=== PATIENT | female | born 1990 | race Caucasian/White ===

== ENCOUNTER 2016-07-27 09:49 | Emergency (ER) | payer OTHER ==
[~2016-07-27] VITALS: Ht 160 cm; Wt 54.4 kg
[~2016-07-27 09:49] MED LIST: ALBUTEROL INHAL17 GM IH; ALBUTEROL2.5 MG/31; AUGMENTIN 500-1 EACH PO; AZITHROMYCIN 2250 MG PO; BACTRIM DS TAB1 EACH PO; DARVOCET-N 1001 EACH PO; DIFLUCAN150 MG PO; IBUPROFEN; IBUPROFEN 600600 M1 PO; KEFLEX500 MG PO; MOBIC15 MG PO; NORCO 5-325 TA1 EACH PO; TESSALON200 MG PO; VICODIN 5-3001 EACH; XANAX 0.5 MG0.5 MG PO; ZOFRAN ODT4 MG PO; ZPAK PO; antibiotic
[2016-07-27 09:51] VITALS: BP 105/63
[2016-07-27] MEDS ORDERED: AMOXICILLIN 50500 MG PO (09:54)
[2016-07-27] MEDS ORDERED: ACYCLOVIR 400400 MG PO (10:04)
[2016-07-27] MEDS ORDERED: HYDROXYZINE HCL25 M1 PO (10:04)
[2016-07-27] MEDS ORDERED: MEDROL DOSPAK21 TAB PO (10:04)
[2016-07-28] MEDS ORDERED: PRILOSEC OTC20 MG PO (15:00)
== END 2016-07-27 10:20 | disposition home or self-care (01) ==
LOC: ER 09:49
DX: T78.49XA Other allergy, initial encounter (principal); B00.89 Other herpesviral infection; X58.XXXA Exposure to other specified factors, initial encounter; Z87.442 Personal history of urinary calculi; F17.210 Nicotine dependence, cigarettes, uncomplicated

== ENCOUNTER 2016-12-21 23:29 | Emergency (ER) | payer OTHER ==
[~2016-12-21] VITALS: Ht 157.5 cm; Wt 52.6 kg
[~2016-12-21 23:29] MED LIST changes: +ACYCLOVIR 400400 MG PO; +AMOXICILLIN 50500 MG PO; +HYDROXYZINE HCL25 M1 PO; +MEDROL DOSPAK21 TAB PO; +PRILOSEC OTC20 MG PO
[2016-12-22 00:48] VITALS: BP 100/54
== END 2016-12-22 00:50 | disposition home or self-care (01) ==
LOC: ER 23:29
DX: B08.5 Enteroviral vesicular pharyngitis (principal); J02.9 Acute pharyngitis, unspecified; F17.210 Nicotine dependence, cigarettes, uncomplicated; Z87.442 Personal history of urinary calculi; Z90.89 Acquired absence of other organs

== ENCOUNTER 2016-12-30 01:50 | Emergency (ER) | payer OTHER ==
[~2016-12-30] VITALS: Ht 157.5 cm; Wt 52.6 kg
[2016-12-30 02:36] VITALS: BP 114/69
== END 2016-12-30 02:38 | disposition home or self-care (01) ==
LOC: ER 01:50
DX: J04.0 Acute laryngitis (principal); F17.210 Nicotine dependence, cigarettes, uncomplicated; Z98.890 Other specified postprocedural states

== ENCOUNTER 2017-05-23 08:05 | Emergency (ER) | payer OTHER ==
[~2017-05-23] VITALS: Ht 157.5 cm; Wt 53.1 kg
[~2017-05-23 08:05] MED LIST changes: +IBUPROFEN 400400 M2 PO; +MOBIC7.5 MG PO; +ONDANSETRON HCL4 M2 PO; +PREDNISONE 20 M20 MG PO
[2017-05-23 09:18] LABS: URINE BILIRUBIN NEGATIVE (Negative); URINE BLOOD 3+ (Negative); URINE CLARITY CLEAR; URINE COLOR YELLOW; URINE GLUCOSE-RANDOM* NEGATIVE (Negative); URINE KETONES NEGATIVE (Negative); URINE LEUKOCYTES-REFLEX NEGATIVE (Negative); URINE NITRITE-REFLEX NEGATIVE (Negative); URINE PROTEIN (DIPSTICK) NEGATIVE (Negative); URINE UROBILINOGEN 0.2 E.U./dl (0.2-1.0)
[2017-05-23] MEDS ORDERED: NAPROSYN500 MG PO (09:27)
[2017-05-23] MEDS ORDERED: TRAMADOL 50 MG50 MG PO (09:27)
[2017-05-23] MEDS ORDERED: ZPAK PO (09:31)
[2017-05-23 09:56] LABS: BACTERIA-REFLEX 1-9 Few /HPF (None Seen); CASTS None Seen /LPF (None Seen); CRYSTALS None Seen /LPF (None Seen); SQUAMOUS 4-10 Moderate /LPF (0-3); URINE WBC-REFLEX 0-5 Rare /HPF (0-5)
== END 2017-05-23 09:44 | disposition home or self-care (01) ==
LOC: ER 08:05
PROVIDERS: Emergency Medicine
DX: N94.6 Dysmenorrhea, unspecified (principal); R10.2 Pelvic and perineal pain; F17.210 Nicotine dependence, cigarettes, uncomplicated

== ENCOUNTER 2017-11-19 00:04 | Emergency (ER) | payer OTHER ==
[~2017-11-19] VITALS: Ht 160 cm; Wt 49.9 kg
[~2017-11-19 00:04] MED LIST changes: +NAPROSYN500 MG PO; +TRAMADOL 50 MG50 MG PO
[2017-11-19 00:45] VITALS: BP 101/41
== END 2017-11-19 08:21 | disposition home or self-care (01) ==
LOC: ER 00:04
DX: Z53.21 Procedure and treatment not carried out due to patient leaving prior to being seen by health care provider (principal)

== ENCOUNTER 2018-01-30 14:16 | Emergency (ER) | payer OTHER ==
[~2018-01-30] VITALS: Ht 157.5 cm; Wt 48.1 kg
[2018-01-30] MEDS ORDERED: NORFLEX100 MG PO (15:03)
[2018-01-30] MEDS ORDERED: MOBIC7.5 MG PO (15:03)
[2018-01-30 16:05] VITALS: BP 118/38
== END 2018-01-30 16:05 | disposition home or self-care (01) ==
LOC: ER 14:16
DX: S29.012A Strain of muscle and tendon of back wall of thorax, initial encounter (principal); X58.XXXA Exposure to other specified factors, initial encounter; Y93.89 Activity, other specified; Y92.89 Other specified places as the place of occurrence of the external cause; Y99.8 Other external cause status

== ENCOUNTER 2018-02-09 11:06 | Emergency (ER) | payer OTHER ==
[~2018-02-09] VITALS: Ht 157.5 cm; Wt 49.9 kg
[~2018-02-09 11:06] MED LIST changes: +NORFLEX100 MG PO
== END 2018-02-09 12:13 | disposition home or self-care (01) ==
LOC: ER 11:06
DX: S23.3XXA Sprain of ligaments of thoracic spine, initial encounter (principal); F17.210 Nicotine dependence, cigarettes, uncomplicated; Z87.442 Personal history of urinary calculi; Z90.89 Acquired absence of other organs; X50.0XXA Overexertion from strenuous movement or load, initial encounter; Y92.89 Other specified places as the place of occurrence of the external cause; Y99.0 Civilian activity done for income or pay; Y99.8 Other external cause status

== ENCOUNTER 2018-05-24 22:38 | Emergency (ER) | payer OTHER ==
[~2018-05-24] VITALS: Ht 157.5 cm; Wt 50.8 kg
[2018-05-24 23:10] LABS: URINE BILIRUBIN NEGATIVE (Negative); URINE BLOOD TRACE (Negative); URINE CLARITY CLEAR; URINE COLOR YELLOW; URINE GLUCOSE-RANDOM* NEGATIVE (Negative); URINE KETONES NEGATIVE (Negative); URINE LEUKOCYTES-REFLEX NEGATIVE (Negative); URINE NITRITE-REFLEX NEGATIVE (Negative); URINE PROTEIN (DIPSTICK) NEGATIVE (Negative); URINE SPECIFIC GRAVITY >= 1.030 (1.005-1.035); URINE UROBILINOGEN 0.2 E.U./dl (0.2-1.0)
[2018-05-24 23:18] LABS: ABSOLUTE NEUTROPHILS 8.4 thou/uL (1.4-8.2); BASOPHILS 0.6 % (0.0-2.0); EOSINOPHILS 2.5 % (0.0-3.0); HEMATOCRIT 41.5 % (37.0-47.0); HEMOGLOBIN 14.2 gm/dL (12.0-15.0); LYMPHOCYTES 28.5 % (24.0-44.0); MCH 32.2 pg (26.0-34.0); MCHC 34.1 g/dL (28.0-37.0); MCV 94.4 fL (80.0-100.0); MONOCYTES 4.9 % (1.0-8.0); PLATELET COUNT 209 thou/uL (150-400); POLYS 63.5 % (36.0-66.0); RBC 4.39 mil/uL (4.20-5.00); RDW 12.8 % (10.5-14.5); WBC 13.2 thou/uL (4.0-11.0)
[2018-05-24 23:26] LABS: CALCIUM 9.5 mg/dL (8.5-10.1); CREATININE 0.7 mg/dL (0.6-1.0); POTASSIUM 4.2 mmol/L (3.5-5.1)
[2018-05-24 23:32] LABS: ALBUMIN 3.8 g/dL (3.4-5.0); TOTAL BILIRUBIN 0.4 mg/dL (<0.1-1.0); TOTAL PROTEIN 8.1 g/dL (6.4-8.2)
[2018-05-24] MEDS ORDERED: PENICILLIN VK500 M1 PO (23:43)
[2018-05-24] MEDS ORDERED: TRAMADOL 50 MG50 MG PO (23:43)
[2018-05-24] MEDS ORDERED: ZOFRAN ODT4 MG DISSOLVE (23:43)
[2018-05-25 00:40] VITALS: BP 102/60
== END 2018-05-25 00:40 | disposition home or self-care (01) ==
LOC: ER 22:38
PROVIDERS: Emergency Medicine
DX: R11.2 Nausea with vomiting, unspecified (principal); R19.7 Diarrhea, unspecified; R51 Headache; K04.7 Periapical abscess without sinus; F17.210 Nicotine dependence, cigarettes, uncomplicated

== ENCOUNTER 2018-09-03 23:20 | Emergency (ER) | payer OTHER ==
[~2018-09-03] VITALS: Ht 157.5 cm; Wt 51.3 kg
[~2018-09-03 23:20] MED LIST changes: +PENICILLIN VK500 M1 PO; +ZOFRAN ODT4 MG DISSOLVE
[2018-09-04] MEDS ORDERED: NAPROSYN500 MG PO (00:38)
[2018-09-04 00:57] VITALS: BP 113/71
== END 2018-09-04 00:58 | disposition home or self-care (01) ==
LOC: ER 23:20
DX: S93.691A Other sprain of right foot, initial encounter (principal); F17.210 Nicotine dependence, cigarettes, uncomplicated; Z87.442 Personal history of urinary calculi; Z90.89 Acquired absence of other organs; Y04.2XXA Assault by strike against or bumped into by another person, initial encounter; Y92.007 Garden or yard of unspecified non-institutional (private) residence as the place of occurrence of the external cause; Y93.89 Activity, other specified; Y99.8 Other external cause status

== ENCOUNTER 2018-12-01 00:35 | Emergency (ER) | payer OTHER ==
[~2018-12-01] VITALS: Ht 160 cm; Wt 52.2 kg
[2018-12-01 01:46] LABS: URINE BILIRUBIN NEGATIVE (Negative); URINE BLOOD 3+ (Negative); URINE CLARITY CLEAR; URINE COLOR YELLOW; URINE GLUCOSE-RANDOM* NEGATIVE (Negative); URINE KETONES 1+ (Negative); URINE LEUKOCYTES-REFLEX NEGATIVE (Negative); URINE NITRITE-REFLEX NEGATIVE (Negative); URINE PROTEIN (DIPSTICK) NEGATIVE (Negative); URINE SPECIFIC GRAVITY 1.025 (1.005-1.035); URINE UROBILINOGEN 0.2 E.U./dl (0.2-1.0)
[2018-12-01] MEDS ORDERED: ZOFRAN ODT4 MG DISSOLVE (02:00)
[2018-12-01] MEDS ORDERED: NAPROSYN500 MG PO (02:00)
[2018-12-01] MEDS ORDERED: ACETAMINOPHEN-1 EAC1 PO (02:06)
[2018-12-01 02:08] LABS: HYALINE CASTS 0-3 Few /LPF (None Seen); MUCUS 0-3 Light strn/LPF (None Seen); SQUAMOUS 0-3 Few /LPF (0-3); TRANSITIONAL EPITHEL CELL 0-3 Few /LPF (None Seen)
[2018-12-01 02:09] LABS: BACTERIA-REFLEX 1-9 Few /HPF (None Seen); CRYSTALS None Seen /LPF (None Seen); URINE RBC 0-2 Rare /HPF (0-2); URINE WBC-REFLEX 0-5 Rare /HPF (0-5)
[2018-12-01 02:18] VITALS: BP 99/60
== END 2018-12-01 02:21 | disposition home or self-care (01) ==
LOC: ER 00:35
PROVIDERS: Emergency Medicine
DX: N94.6 Dysmenorrhea, unspecified (principal); R51 Headache; F17.210 Nicotine dependence, cigarettes, uncomplicated; Z87.442 Personal history of urinary calculi; Z90.49 Acquired absence of other specified parts of digestive tract

== ENCOUNTER 2018-12-24 02:32 | Emergency (ER) | payer OTHER ==
[~2018-12-24] VITALS: Ht 157.5 cm; Wt 52.2 kg
[~2018-12-24 02:32] MED LIST changes: +ACETAMINOPHEN-1 EAC1 PO
[2018-12-24] MEDS ORDERED: NAPROXEN375 MG PO ×3 (03:27→04:34)
[2018-12-24] MEDS ORDERED: METHOCARBAMOL500 M2 PO ×3 (03:27→04:34)
[2018-12-24 04:47] VITALS: BP 109/65
--- NOTE | 2018-12-24 08:44 | EKG ---
[address] [place] [address] ELECTROCARDIOGRAM REPORT Name: MARGARET ESPINAL Mir Room #: [facility]#: [id number] ������������������ Admission: 12/24/18 ������������������ Attend Phys: Discharge: 12/24/18 ������������������ Date of : [birth year] Report #: [id number] ����������������������������������������������������������������� [id number] THIS REPORT FOR: //name// [facility] ED Test Date: 2018-12-24 Test Time: 02:48:14 Pat Name: MARGARET ESPINAL Department: Room: Gender: F Foxer: VIANEY : 1990 Requested By: Jay Grady Order Number: [id number] MD: Marcelo Leary Measurements Intervals [place] Rate: 83 P: 72 ID: 128 QRS: 71 QRSD: 91 T: 65 QT: 352 QTc: 414 Interpretive Statements Sinus rhythm Normal tracing Compared to ECG 07/01/2012 03:44:08 Sinus tachycardia no longer present Electronically Signed On 12-24-2018 8:44:13 CDT by Marcelo Leary [email or web address] ��������������������������������������������� <ELECTRONICALLY SIGNED> ���������������������������������������� By: Marcelo Leary MD, [facility] ��������������������������������������������� 12/24/18 0844 0248 0248 Marcelo Leary MD, FACC /EPI
== END 2018-12-24 04:50 | disposition home or self-care (01) ==
LOC: ER 02:32
DX: J93.83 Other pneumothorax (principal); F17.210 Nicotine dependence, cigarettes, uncomplicated; Z87.442 Personal history of urinary calculi; Z90.49 Acquired absence of other specified parts of digestive tract

== ENCOUNTER 2018-12-24 08:25 | Emergency (ER) | payer OTHER ==
[~2018-12-24] VITALS: Ht 157.5 cm; Wt 52.2 kg
[~2018-12-24 08:25] MED LIST changes: +METHOCARBAMOL500 M2 PO; +NAPROXEN375 MG PO
[2018-12-24 10:00] VITALS: BP 113/56
== END 2018-12-24 10:00 | disposition home or self-care (01) ==
LOC: ER 08:25
DX: J93.9 Pneumothorax, unspecified (principal); F17.210 Nicotine dependence, cigarettes, uncomplicated; Z87.442 Personal history of urinary calculi; Z90.49 Acquired absence of other specified parts of digestive tract

== ENCOUNTER 2018-12-25 10:19 | Emergency (ER) | payer OTHER ==
[~2018-12-25] VITALS: Ht 157.5 cm; Wt 52.2 kg
[2018-12-25 10:20] VITALS: BP 106/53
== END 2018-12-25 11:48 | disposition home or self-care (01) ==
LOC: ER 10:19
DX: J93.9 Pneumothorax, unspecified (principal); F17.210 Nicotine dependence, cigarettes, uncomplicated; Z90.49 Acquired absence of other specified parts of digestive tract; Z87.442 Personal history of urinary calculi

== ENCOUNTER 2019-03-03 08:49 | Emergency (ER) | payer OTHER ==
[~2019-03-03] VITALS: Ht 157.5 cm; Wt 52.2 kg
[2019-03-03] MEDS ORDERED: CLEOCIN HCL300 MG PO (09:54)
[2019-03-03 10:05] VITALS: BP 126/72
[2019-03-04] MEDS ORDERED: CHANTIX1 EACH PO (08:27)
[2019-03-04] MEDS ORDERED: PREDNISONE 20 M20 MG PO (09:19)
== END 2019-03-03 10:13 | disposition home or self-care (01) ==
LOC: ER 08:49
DX: L03.213 Periorbital cellulitis (principal); F17.210 Nicotine dependence, cigarettes, uncomplicated; Z79.899 Other long term (current) drug therapy; Z87.442 Personal history of urinary calculi; Z90.89 Acquired absence of other organs

== ENCOUNTER 2019-03-04 08:04 | Emergency (ER) | payer OTHER ==
[~2019-03-04] VITALS: Ht 157.5 cm; Wt 52.2 kg
[~2019-03-04 08:04] MED LIST changes: +CLEOCIN HCL300 MG PO
[2019-03-04] MEDS ORDERED: CHANTIX1 EACH PO (08:27)
[2019-03-04] MEDS ORDERED: PREDNISONE 20 M20 MG PO (09:19)
[2019-03-04 09:31] VITALS: BP 107/70
== END 2019-03-04 09:32 | disposition home or self-care (01) ==
LOC: ER 08:04
DX: L03.213 Periorbital cellulitis (principal); F17.210 Nicotine dependence, cigarettes, uncomplicated; Z79.899 Other long term (current) drug therapy; Z87.442 Personal history of urinary calculi; Z90.89 Acquired absence of other organs

== ENCOUNTER 2019-03-19 10:40 | Emergency (ER) | payer OTHER ==
[~2019-03-19] VITALS: Ht 157.5 cm; Wt 52.2 kg
[~2019-03-19 10:40] MED LIST changes: +CHANTIX1 EACH PO
[2019-03-19] MEDS ORDERED: DOXYCYCLINE 10100 MG PO (11:47)
[2019-03-19 12:20] VITALS: BP 117/62
== END 2019-03-19 12:21 | disposition home or self-care (01) ==
LOC: ER 10:40
DX: L40.9 Psoriasis, unspecified (principal); F17.210 Nicotine dependence, cigarettes, uncomplicated; Z87.442 Personal history of urinary calculi; Z90.49 Acquired absence of other specified parts of digestive tract

== ENCOUNTER 2019-03-28 06:38 | Emergency (ER) | payer OTHER ==
[~2019-03-28] VITALS: Ht 157.5 cm; Wt 52.2 kg
[~2019-03-28 06:38] MED LIST changes: +DOXYCYCLINE 10100 MG PO
[2019-03-28] MEDS ORDERED: BACTRIM DS TAB1 EAC1 PO (06:48)
[2019-03-28] MEDS ORDERED: AUGMENTIN 500-1 EACH PO (06:49)
[2019-03-28 07:59] LABS: ABSOLUTE NEUTROPHILS 9.3 thou/uL (1.4-8.2); BASOPHILS 0.3 % (0.0-2.0); EOSINOPHILS 0.5 % (0.0-3.0); HEMATOCRIT 41.9 % (37.0-47.0); MCH 31.7 pg (26.0-34.0); MCHC 33.4 g/dL (28.0-37.0); MONOCYTES 2.1 % (1.0-8.0); PLATELET COUNT 266 thou/uL (150-400); POLYS 90.1 % (36.0-66.0); RBC 4.41 mil/uL (4.20-5.00); RDW 12.7 % (10.5-14.5); WBC 10.4 thou/uL (4.0-11.0)
[2019-03-28 08:02] LABS: CALCIUM 10.4 mg/dL (8.5-10.1); CREATININE 0.9 mg/dL (0.6-1.0)
[2019-03-28 08:08] LABS: ALBUMIN 4.2 g/dL (3.4-5.0); TOTAL BILIRUBIN 0.5 mg/dL (<0.1-1.0); TOTAL PROTEIN 8.5 g/dL (6.4-8.2)
[2019-03-28 08:12] LABS: URINE BLOOD TRACE (Negative); URINE CLARITY CLOUDY; URINE COLOR YELLOW; URINE GLUCOSE-RANDOM* NEGATIVE (Negative); URINE KETONES 3+ (Negative); URINE LEUKOCYTES-REFLEX NEGATIVE (Negative); URINE NITRITE-REFLEX NEGATIVE (Negative); URINE PROTEIN (DIPSTICK) NEGATIVE (Negative); URINE SPECIFIC GRAVITY >= 1.030 (1.005-1.035); URINE UROBILINOGEN 0.2 E.U./dl (0.2-1.0)
[2019-03-28 08:32] LABS: ICTOTEST (BILI CONFIRMATORY) Negative (Negative); URINE BILIRUBIN NEGATIVE (Negative)
[2019-03-28 08:33] LABS: URINE REDUCING SUBSTANCE NEGATIVE
[2019-03-28] MEDS ORDERED: ONDANSETRON ODT8 MG PO (08:59)
[2019-03-28 09:20] VITALS: BP 121/49
== END 2019-03-28 09:20 | disposition home or self-care (01) ==
LOC: ER 06:38
PROVIDERS: Emergency Medicine
DX: R11.2 Nausea with vomiting, unspecified (principal); R19.7 Diarrhea, unspecified; T36.8X5A Adverse effect of other systemic antibiotics, initial encounter; F17.210 Nicotine dependence, cigarettes, uncomplicated; Y92.89 Other specified places as the place of occurrence of the external cause; Z87.442 Personal history of urinary calculi; Z90.89 Acquired absence of other organs; Z79.899 Other long term (current) drug therapy

== ENCOUNTER 2019-04-19 08:23 | Emergency (ER) | payer OTHER ==
[~2019-04-19] VITALS: Ht 157.5 cm; Wt 50.8 kg
[~2019-04-19 08:23] MED LIST changes: +BACTRIM DS TAB1 EAC1 PO; +ONDANSETRON ODT8 MG PO
[2019-04-19 09:25] VITALS: BP 106/65
[2019-04-19] MEDS ORDERED: IBUPROFEN 600600 M1 PO (16:11)
[2019-04-19] MEDS ORDERED: NORCO 5-325 TA1 EAC1 PO (16:11)
[2019-04-19] MEDS ORDERED: ZOFRAN ODT4 MG PO (16:11)
== END 2019-04-19 11:09 | disposition left against medical advice (07) ==
LOC: ER 08:23
DX: J93.83 Other pneumothorax (principal); F17.210 Nicotine dependence, cigarettes, uncomplicated

== ENCOUNTER 2019-04-19 12:28 | Emergency (ER) | payer OTHER ==
[~2019-04-19] VITALS: Ht 157.5 cm; Wt 50.8 kg
[2019-04-19 15:15] VITALS: BP 106/57
[2019-04-19 15:20] VITALS: BP 104/60
[2019-04-19 15:30] VITALS: BP 106/60
[2019-04-19 15:35] VITALS: BP 117/63
[2019-04-19 15:40] VITALS: BP 110/64
[2019-04-19] MEDS ORDERED: ZOFRAN ODT4 MG PO (16:11)
[2019-04-19] MEDS ORDERED: IBUPROFEN 600600 M1 PO (16:11)
[2019-04-19] MEDS ORDERED: NORCO 5-325 TA1 EAC1 PO (16:11)
[2019-04-19 16:54] VITALS: BP 100/46
== END 2019-04-19 16:57 | disposition home or self-care (01) ==
LOC: ER 12:28
DX: J93.83 Other pneumothorax (principal); F17.210 Nicotine dependence, cigarettes, uncomplicated

== ENCOUNTER 2019-04-23 20:01 | Emergency (ER) | payer OTHER ==
[~2019-04-23] VITALS: Ht 157.5 cm; Wt 49.9 kg
[~2019-04-23 20:01] MED LIST changes: +NORCO 5-325 TA1 EAC1 PO
[2019-04-23 20:59] VITALS: BP 109/70
== END 2019-04-23 22:05 | disposition home or self-care (01) ==
LOC: ER 20:01
DX: J93.9 Pneumothorax, unspecified (principal); F17.210 Nicotine dependence, cigarettes, uncomplicated; Z90.49 Acquired absence of other specified parts of digestive tract; Z87.442 Personal history of urinary calculi

== ENCOUNTER 2019-04-24 11:32 | Emergency (ER) | payer OTHER ==
[~2019-04-24] VITALS: Ht 157.5 cm; Wt 49.9 kg
[2019-04-24 11:35] VITALS: BP 118/65
== END 2019-04-24 12:18 | disposition home or self-care (01) ==
LOC: ER 11:32
DX: R07.9 Chest pain, unspecified (principal); F17.210 Nicotine dependence, cigarettes, uncomplicated; Z96.89 Presence of other specified functional implants; Z87.442 Personal history of urinary calculi; Z90.49 Acquired absence of other specified parts of digestive tract

== ENCOUNTER → 2019-05-29 | Outpatient (CLI) | payer OTHER | LOC: RAD 11:56 | DX: J93.9 Pneumothorax, unspecified (principal); G89.18 Other acute postprocedural pain; R07.89 Other chest pain ==

== ENCOUNTER 2019-11-21 06:43 | Emergency (ER) | payer OTHER ==
[~2019-11-21] VITALS: Ht 160 cm; Wt 59.0 kg
[2019-11-21 09:10] LABS: ABSOLUTE NEUTROPHILS 5.3 thou/uL (1.4-8.2); BASOPHILS 0.7 % (0.0-2.0); EOSINOPHILS 2.5 % (0.0-3.0); HEMATOCRIT 43.1 % (37.0-47.0); HEMOGLOBIN 14.8 gm/dL (12.0-15.0); LYMPHOCYTES 28.2 % (24.0-44.0); MCH 33.7 pg (26.0-34.0); MCHC 34.4 g/dL (28.0-37.0); MCV 97.8 fL (80.0-100.0); MONOCYTES 7.2 % (1.0-8.0); PLATELET COUNT 249 thou/uL (150-400); POLYS 61.4 % (36.0-66.0); RBC 4.41 mil/uL (4.20-5.00); RDW 12.7 % (10.5-14.5); WBC 8.7 thou/uL (4.0-11.0)
[2019-11-21 09:23] LABS: APTT 32.9 Seconds (24.5-32.8)
[2019-11-21 09:27] LABS: CALCIUM 9.1 mg/dL (8.5-10.1); CREATININE 0.8 mg/dL (0.6-1.0)
[2019-11-21 14:26] LABS: ALBUMIN 4.1 g/dL (3.4-5.0); TOTAL BILIRUBIN 0.4 mg/dL (0.2-1.0); TOTAL PROTEIN 7.8 g/dL (6.4-8.2)
[2019-11-21 15:20] LABS: CALCIUM 8.5 mg/dL (8.5-10.1); CREATININE 0.6 mg/dL (0.6-1.0); POTASSIUM 3.8 mmol/L (3.5-5.1)
[2019-11-21 15:26] LABS: ALBUMIN 3.8 g/dL (3.4-5.0); TOTAL BILIRUBIN 0.5 mg/dL (0.2-1.0); TOTAL PROTEIN 7.2 g/dL (6.4-8.2)
[2019-11-21] MEDS ORDERED: NORCO 5-325 TA1 EAC2 PO ×2 (15:47→16:36)
[2019-11-21] MEDS ORDERED: IBUPROFEN 600600 M1 PO (15:48)
[2019-11-21] MEDS ORDERED: SENNA-DOCUSATE1 EAC1 PO (15:48)
[2019-11-21 16:40] VITALS: BP 106/61
[2019-11-21] MEDS ORDERED: ZOFRAN ODT4 MG PO (16:52)
--- NOTE | 2019-11-22 08:29 | EKG ---
[facility] [place] [address] ELECTROCARDIOGRAM REPORT Name: MARGARET ESPINAL Room #: [facility]#: [id number] Admission: 11/21/19 Attend Phys: Discharge: 11/21/19 Date of : [birth year] Report #: [id number] THIS REPORT FOR: cc: [place] - Shi family physician/PCP [place] - Shi family physician/PCP Marcelo Leary MD [facility] THIS REPORT FOR: //name// [facility] ED Test Date: 2019-11-21 Test Time: 12:10:44 Pat Name: MARGARET ESPINAL Department: Room: Gender: F Department Of Sociology Chair: [facility] : 1990 Requested By: Lazaro Doe Order Number: [id number] MD: Marcelo Leary Measurements Intervals [place] Rate: 60 P: 8 IA: 114 QRS: 79 QRSD: 105 T: 52 QT: 409 QTc: 409 Interpretive Statements Sinus rhythm Borderline short IA interval Compared to ECG 12/24/2018 02:48:14 No significant change was found Electronically Signed On 11-22-2019 8:29:02 CDT by Marcelo Leary [email or web address] <ELECTRONICALLY SIGNED> By: Marcelo Leary MD, FAC 11/22/19 0829 1210 1210 Marcelo Leary MD, [facility] /EPI
== END 2019-11-21 17:00 | disposition home or self-care (01) ==
LOC: ER 06:43
PROVIDERS: Emergency Medicine; Surgery Vascular Surgery
DX: J93.9 Pneumothorax, unspecified (principal); Z20.828 Contact with and (suspected) exposure to other viral communicable diseases; F17.210 Nicotine dependence, cigarettes, uncomplicated; Z87.442 Personal history of urinary calculi; Z90.89 Acquired absence of other organs

== ENCOUNTER 2019-11-23 04:17 | Emergency (ER) | payer OTHER ==
[~2019-11-23] VITALS: Ht 160 cm; Wt 59.9 kg
[~2019-11-23 04:17] MED LIST changes: +NORCO 5-325 TA1 EAC2 PO; +SENNA-DOCUSATE1 EAC1 PO
[2019-11-23 06:27] VITALS: BP 102/60
== END 2019-11-23 06:30 | disposition home or self-care (01) ==
LOC: ER 04:17
DX: J93.83 Other pneumothorax (principal); F17.210 Nicotine dependence, cigarettes, uncomplicated; Z79.899 Other long term (current) drug therapy

== ENCOUNTER → 2019-11-27 | Outpatient (CLI) | payer OTHER ==
[~2019-11-27] MED LIST changes: +SENNA PLUS TAB1 EACH PO; +ZOFRAN4 MG PO
== END ==
LOC: RAD 09:31
PROVIDERS: ATTEND Pediatrics
DX: J93.83 Other pneumothorax (principal)

== ENCOUNTER → 2019-11-28 | Outpatient (CLI) | payer OTHER ==
[~2019-11-28] MED LIST changes: +HYDROCODON-ACE1 EAC7 PO; +PEPCID20 MG PO; +PROAIR HFA8.5 GM INH; +ZYRTEC10 M4 PO
== END ==
LOC: LAB 12:07
PROVIDERS: ATTEND Student in an Organized Health Care Education/Training Program
DX: Z01.812 Encounter for preprocedural laboratory examination (principal); Z20.828 Contact with and (suspected) exposure to other viral communicable diseases

== ENCOUNTER 2019-12-02 06:07 | Inpatient (IN) | payer OTHER ==
[2019-11-28 10:47] LABS: URINE BILIRUBIN NEGATIVE (Negative); URINE BLOOD NEGATIVE (Negative); URINE CLARITY CLEAR; URINE COLOR YELLOW; URINE GLUCOSE-RANDOM* NEGATIVE (Negative); URINE KETONES NEGATIVE (Negative); URINE LEUKOCYTES-REFLEX NEGATIVE (Negative); URINE NITRITE-REFLEX NEGATIVE (Negative); URINE PROTEIN (DIPSTICK) NEGATIVE (Negative); URINE SPECIFIC GRAVITY <= 1.005 (1.005-1.035); URINE UROBILINOGEN 0.2 E.U./dl (0.2-1.0)
[2019-12-02] VITALS (29 sets, daily range): BP systolic 95–120; BP diastolic 37–76
[~2019-12-02] VITALS: Ht 160 cm; Wt 59.0 kg
[~2019-12-02 06:07] MED LIST changes: -HYDROCODON-ACE1 EAC7 PO; -PEPCID20 MG PO; -PROAIR HFA8.5 GM INH; -ZYRTEC10 M4 PO
--- NOTE | 2019-12-02 18:48 | NUR ---
PT ADMITTED TO ICU 12/02/19 AT 1020 FROM PACU. PT A & O X4. LEFT LATERAL CHEST TUBE IN PLACE TO WALL SUCTION. 650ML SERO-SANG DRAINAGE, DRESSING CHANGED DUE TO SATURATION AT INSERTION SITE. AFEBRILE. PT HAD UNMEASURED VOID. NO BM. MOTHER AT BED SIDE UNTIL 1700. PT AND MOTHER UPDATED AND EDUCATED ON PT CONDITION AND POC. PROGRESSING TOWARDS POC. PT HAS FENTYNAL OYSTER PICKER FOR PAIN CONTROL. WILL CONTINUE TO MONITOR.
[2019-12-03] VITALS (10 sets, daily range): BP systolic 92–118; BP diastolic 45–71
--- NOTE | 2019-12-03 04:23 | NUR ---
Pt has only rested for short intervals through the night, she C/O nausea but has never vomited, has received prn zofran x 2 then asks for more things to eat/drink. She is taking ice chips well, and that is all she has received. The URBAN PLANNING TEACHER med was changed out, the bag was empty and she immediately reported pain, This technical writer explained that although her "button" wasn't delivering meds, she was still receiving her basal rate, and that she should be able to stay calm until the next bag was received.
[2019-12-03 05:27] LABS: HEMATOCRIT 40.5 % (37.0-47.0); HEMOGLOBIN 13.5 gm/dL (12.0-15.0); MCH 32.8 pg (26.0-34.0); MCHC 33.4 g/dL (28.0-37.0); MCV 98.3 fL (80.0-100.0); RBC 4.12 mil/uL (4.20-5.00); WBC 15.9 thou/uL (4.0-11.0)
[2019-12-03 06:17] LABS: CALCIUM 8.8 mg/dL (8.5-10.1); CREATININE 0.7 mg/dL (0.6-1.0); POTASSIUM 3.5 mmol/L (3.5-5.1)
--- NOTE | 2019-12-03 09:32 | NUR ---
ASSESSMENT: CM REVIEWED CHART AND SPOKE WITH PATIENT VIA PHONE. PT IS ALERT AND ORIENTED X4. PT WAS ADMITTED DUE TO LEFT PNEUMOTHORAX. PT HAD A BRONCH COMPLETED YESTERDAY AND CURRENTLY HAS A CHEST TUBE IN PLACE. PT HAS A HX OF PNEUMOTHOACES IN THE PAST. PT REPORTS LIVING AT HOME WITH A ROOMATE IN A DUPLEX. PT REPORTS HAVING ABOUT 4 STEPS TO ENTER AND ABOUT 4 STEPS TO HER BEDROOM. PT REPORTS NORMALLY SHE IS VERY INDEPENDENT AND DENIES ANY DME. PT REPORTS THAT HER MOTHER AND ROOMATE HAVE TAKEN A WEEK OFF TO HELP ASSIST HER IF SHE NEEDS IT. PT REPORTS THAT SHE NORMALLY SEES DR. BLANCO BUT DOES NOT HAVE A PCP. CM SUGGESTED SHE CONTACT THE NUMBER ON HER INSURANCE CARD OR GET ON HER INSURANCE WEBSITE TO ESTABLISH A PCP THAT IS IN NETWORK. PT REPORTING SHE CAN DO THAT. PATIENT IS A POSSIBLE TRANSFER OUT OF ICU. CM WILL CONTINUE TO FOLLOW TO ASSIST NEEDED.
--- NOTE | 2019-12-03 15:58 | NUR ---
PATIENT ARRIVED FROM ICU AT 1145, ALERT AND ORIENTED X4. FENTANYL MAGNETIC LOCATER INFUSING, PAIN AT 4/10. LT CHEST TUBE INTACT INPLACE AND WATER SEAL. MAKES NEEDS KNOWN. DRESSING LT LOWER CHEST CHANGED. AND WILL CONTINUE WITH POC.
--- NOTE | 2019-12-03 17:06 | PATH ---
[facility] [address] [place] [address] PATHOLOGY RPT PROCEDURE Name: MARGARET ESPINAL Mir Room #: 210-P ADM IN M.R.#: [id number] Admission: 12/02/19 Date of : [birth year] Discharge: Report #: [id number] Path Case #: [id number] [facility] Accession Number: [id number] . 01 Material submitted: . lung - APEX LEFT UPPER LOBE. Modifiers: left, upper lobe, apex . 01 Clinical history: . LEFT PNEUMOTHORAX . 02 Diagnosis: Lung, apex left upper lobe, wedge resection: - Marked emphysematous changes along with congestion as well as focal bleb formation, history of pneumothorax. ([facility]:[place]; 12/03/2019) QMS 12/03/2019 1343 Local . 02 Electronically signed: . Sharonda Crowder MD, Pathologist NPI- [id number] . 01 Gross description: . The specimen is received in formalin, labeled "Margaret Espinal, apex left upper lobe". Received is a segment of pink-marquez lung tissue with a stapled margin of resection measuring 3.7 x 1.4 x 1.0 cm in greatest dimensions. The lang are removed and the new margin is inked black. Sectioning reveals light marquez to pink-marquez cut surfaces with no grossly distinct nodules or lesions. The specimen is submitted entirely in cassettes A1 and A2. ([facility]; 12/02/2019) QAC/QAC 12/02/2019 1614 Local . 02 Pathologist provided ICD-10: J43.9, R09.89 . 02 CPT . 707264 Specimen Comment: A courtesy copy of this report has been sent to [phone] Specimen Comment: Report sent to Performed at: [address], [place] [id number] MD Jose Juan Montoya MD Phone: [phone] Performed at: [address] [id number] MD Sharonda Crowder MD Phone: [phone]
--- NOTE | 2019-12-04 04:08 | NUR ---
SLEPT PART OF SHIFT. UP TO BATHROOM WITH STANDBY ASSIST WITH CHEST TUBE. PAIN CONTROLLED WITH CHARACTER ARTIST. NO COMPLAINTS OF NAUSEA THIS SHIFT. WORKING ON GOALS AND PLAN OF CARE FOR NOC. PROGRESSING TOWARDS DISCHARGE GOALS SLOWLY. CONTINUE OT ASSES NEEDED.
[2019-12-04 05:00] VITALS: BP 104/64
[2019-12-04 07:33] VITALS: BP 100/56
--- NOTE | 2019-12-04 07:53 | O ---
[facility] [place] [address] [address] [place] [address] OPERATIVE REPORT Name: MARGARET ESPINAL Room #: 210-P ADM IN M.R.#: [id number] Admission: 12/02/19 Attend Phys: Lazaro Doe MD Discharge: Date of : [birth year] Report #: [id number] THIS REPORT FOR: cc: FAM - Family physician unknown FAM - Family physician unknown Lazaro Doe MD ~ CC: [facility] unknown Lazaro Soria DATE OF SERVICE: 12/02/2019 PREOPERATIVE DIAGNOSIS: Recurrent spontaneous left pneumothorax. POSTOPERATIVE DIAGNOSIS: Recurrent spontaneous left pneumothorax. OPERATION: Bronchoscopy, left video-assisted thoracoscopy, wedge resection of left upper lobe of lung and chemical pleurodesis. SURGEON: Lazaro Doe MD. EVENT SPECIALIST FOOD DEMONSTRATOR: MICAH Anderson. ANESTHESIA: General. INDICATIONS: The patient is a 29-year-old with recurrent spontaneous left pneumothorax. 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 The patient had a pleural tube placed in the Emergency Department a week ago and the leak sealed, but with recurrent pneumothoraces, our recommendation was to proceed to definitively address the problem. FINDINGS AND TECHNIQUE: After general anesthesia was established, flexible diagnostic bronchoscopy was performed. No endobronchial lesions were noted. Double lumen endotracheal tube was placed and its position ascertained with bronchoscopic guidance. The patient was positioned with left side up. Exposure was obtained through typical video-assisted thoracoscopy ports. The left lung was inspected at the apex of the lung. There was a tiny bleb. This was resected with the application of a stapler. The remainder of the lung was assessed and no other evidence of abnormality was noted. Similarly, we also inspected the diaphragm carefully to make sure that there were no defects in it. I saw no evidence of endometriosis in the chest. When the resection was done, a doxycycline solution was placed in the chest for chemical sclerosis. After this, the chest tube was brought through the [facility] [address] [place] [address] OPERATIVE REPORT Name: MARGARET ESPINAL Mir Room #: 210-P [facility]#: [id number] Admission: 12/02/19 Attend Phys: Lazaro Doe MD Discharge: Date of : 89 Report #: [id number] port and the other ports were closed in layers. The patient was taken to the recovery area having tolerated the procedure well. All counts reported as correct. <ELECTRONICALLY SIGNED> By: Lazaro Doe MD 12/04/19 0753 08 0811 Lazaro Doe MD /nt
[2019-12-04 11:56] VITALS: BP 109/72
[2019-12-04 15:28] VITALS: BP 99/57
--- NOTE | 2019-12-04 18:43 | NUR ---
ASSESSMENT DOCUMENTED, VSS AND AFEBRILE. SR ON THE MONITOR. CT DISCONTINUED AT 1210, AND DRESSING INTACT TO LT LOWER BACK IS D/C/I. CAM MAKER DISCONTINUED, MEDICATED FOR PAIN WITH PO VICODIN. PATIENT REPORT LESS PAIN AFTER CT REMOVED, AND WILL CONTINUE WITH POC.
[2019-12-04 19:25] VITALS: BP 106/45
[2019-12-05 04:00] VITALS: BP 106/59
--- NOTE | 2019-12-05 05:10 | NUR ---
SLEPT MOST OF SHIFT. UP AD DELON TO BATHROOM. DENIES FEELING OF SHORTNESS OF AIR. PAIN MEDICATION GIVEN NEEDED FOR PAIN, ENCOURAGED DEEP BREATHING AND COUGHING. PATIENT NOTED UNDER RIGHT EYE WAS PUFFY. SLIGHT PUFFINESS NOTED. LEONORA GLOVE CUTTER NOTIFIED. WORKING ON GOALS AND PLAN OF CARE FOR NOC. PROGRESSING TOWARDS DISCHARGE GOALS SLOWLY. CONTINUE TO ASSES.
[2019-12-05 08:30] VITALS: BP 111/57
[2019-12-05] MEDS ORDERED: PEPCID20 MG PO (09:58)
[2019-12-05] MEDS ORDERED: ZYRTEC10 M4 PO (09:58)
[2019-12-05] MEDS ORDERED: PROAIR HFA8.5 GM INH (09:58)
[2019-12-05] MEDS ORDERED: HYDROCODON-ACE1 EAC7 PO (09:58)
[2019-12-05 11:15] VITALS: BP 110/59
--- NOTE | 2019-12-05 14:05 | NUR ---
ASSUMED CARE AT SHIFT CHANGE, ALERT AND ORIENTED X4. ASSESSMENT CHARTED. MEDICATED FOR INDACTED, AND PATIENT REPORTED RELIEFE. NITA OBRIEN SAW PATIENT AND DISCHARGE INSTRUCTIONS EXPLAINED TO PATIENT, AND ALL QUESTIONS AND CONCERNS WERE ADDRESSED.
[2019-12-05 14:21] VITALS: BP 110/59
== END 2019-12-05 15:19 | disposition home or self-care (01) | DRG 164 ==
LOC: TBA 06:07 → ICU 06:07 → PRE 09:53 → ICU 10:37 → PRE 11:28 → 2N 12-03 11:35
PROVIDERS: Physician Assistant; ADMIT Surgery Vascular Surgery; ATTEND Surgery Vascular Surgery
PROC: 3E0L3GC Introduction of Other Therapeutic Substance into Pleural Cavity, Percutaneous Approach (ICD-10-PCS; principal; 2019-12-02)
PROC: 0BTC4ZZ Resection of Right Upper Lung Lobe, Percutaneous Endoscopic Approach (ICD-10-PCS; 2019-12-02)
DX: J93.83 Other pneumothorax (principal); R65.10 Systemic inflammatory response syndrome (SIRS) of non-infectious origin without acute organ dysfunction; F12.90 Cannabis use, unspecified, uncomplicated; Z87.442 Personal history of urinary calculi; E87.6 Hypokalemia; Z79.899 Other long term (current) drug therapy
CPT/HCPCS: 10078; 10081; 50010; 50101; 50386; 50417; 50497; 50739; 50740; 52265; 54118; 56524; 56526; 56528; 62110; 62900; 64037; 70005

== ENCOUNTER → 2019-12-19 | Outpatient (CLI) | payer OTHER ==
[~2019-12-19] MED LIST changes: +HYDROCODON-ACE1 EAC7 PO; +PEPCID20 MG PO; +PROAIR HFA8.5 GM INH; +ZYRTEC10 M4 PO
== END ==
LOC: RAD 11:13
PROVIDERS: ATTEND Pediatrics
DX: R06.00 Dyspnea, unspecified (principal); Z87.09 Personal history of other diseases of the respiratory system

== ENCOUNTER → 2019-12-30 | Outpatient (CLI) | payer OTHER | LOC: RAD 13:05 | PROVIDERS: ATTEND Internal Medicine Pulmonary Disease | DX: R06.02 Shortness of breath (principal) ==

== ENCOUNTER 2020-03-30 09:35 | Emergency (ER) | payer OTHER ==
[~2020-03-30] VITALS: Ht 160 cm; Wt 61.7 kg
[2020-03-30 10:22] LABS: ABSOLUTE NEUTROPHILS 3.5 thou/uL (1.4-8.2); BASOPHILS 1.3 % (0.0-2.0); EOSINOPHILS 2.6 % (0.0-3.0); HEMOGLOBIN 13.4 gm/dL (12.0-15.0); LYMPHOCYTES 37.4 % (24.0-44.0); MCH 32.3 pg (26.0-34.0); MCHC 33.5 g/dL (28.0-37.0); MCV 96.2 fL (80.0-100.0); MONOCYTES 6.1 % (1.0-8.0); PLATELET COUNT 287 thou/uL (150-400); POLYS 52.6 % (36.0-66.0); RBC 4.15 mil/uL (4.20-5.00); WBC 6.7 thou/uL (4.0-11.0)
[2020-03-30 10:31] LABS: ANION GAP 11 mmol/L (7-16); BUN 5 mg/dL (7-18); CALCIUM 9.2 mg/dL (8.5-10.1); CHLORIDE 104 mmol/L (98-107); CO2 25 mmol/L (21-32); CREATININE 0.6 mg/dL (0.6-1.0); GLUCOSE 92 mg/dL (74-106); POTASSIUM 3.7 mmol/L (3.5-5.1); SODIUM 140 mmol/L (136-145)
[2020-03-30 10:41] LABS: ALBUMIN 3.8 g/dL (3.4-5.0); SGOT 17 U/L (15-37); SGPT 21 U/L (30-65); TOTAL BILIRUBIN 0.3 mg/dL (0.2-1.0); TOTAL PROTEIN 7.6 g/dL (6.4-8.2); TROPONIN-I <0.06 ng/mL (<0.06)
[2020-03-30 11:39] VITALS: BP 105/59
[2020-03-30] MEDS ORDERED: ZOFRAN ODT4 MG PO (11:39)
== END 2020-03-30 11:39 | disposition home or self-care (01) ==
LOC: ER 09:35
PROVIDERS: Emergency Medicine
DX: R04.2 Hemoptysis (principal); F17.210 Nicotine dependence, cigarettes, uncomplicated; Z79.899 Other long term (current) drug therapy